=== PATIENT | female | born 1995 ===

== ENCOUNTER 2019-03-01 21:51 | Emergency (ER) | payer MEDICAID | END 2019-03-01 23:52 | disposition left against medical advice (07) | LOC: DL.ED 21:51 | DX: Z53.21 Procedure and treatment not carried out due to patient leaving prior to being seen by health care provider (principal) | CPT/HCPCS: 80305-QW; 81001; 81025; 87086 ==

== ENCOUNTER 2023-10-01 22:28 | Emergency (ER) | payer MEDICAID, OTHER ==
[2023-10-01] MEDS ORDERED: Bacitracin Oint 1 GM U/D Packet TOP ONE (22:37)
[2023-10-01] MEDS ORDERED: Diphtheria,Pertussis(Acell),Tetanus Vaccine 0.5 ML Syringe IM ONE (22:37)
[2023-10-01] MEDS ORDERED: Lidocaine 2% with EPINEPHrine 1:200,000 20 ML SDV INJECT ONE (22:37)
== END 2023-10-01 23:52 | disposition home or self-care (01) ==
LOC: MERGE 22:28 → DL.ED 22:28
DX: S51.811A Laceration without foreign body of right forearm, initial encounter (principal); F17.210 Nicotine dependence, cigarettes, uncomplicated; W26.8XXA Contact with other sharp object(s), not elsewhere classified, initial encounter; Y99.0 Civilian activity done for income or pay
CPT/HCPCS: 12001; 90471; 90715; 99282; A9270; J3490

== ENCOUNTER 2024-12-26 11:14 | Emergency (ER) | payer MEDICAID ==
[2024-12-26] MEDS: Ketorolac 30 MG/ML SDV IM ONE (11:29)
== END 2024-12-26 12:00 | disposition home or self-care (01) ==
LOC: DL.ED 11:14
DX: S49.91XA Unspecified injury of right shoulder and upper arm, initial encounter (principal); Z79.899 Other long term (current) drug therapy; W01.198A Fall on same level from slipping, tripping and stumbling with subsequent striking against other object, initial encounter
CPT/HCPCS: 73030-RT; 96372; 99282; 99284; J1885